=== PATIENT | female | born 1965 | race Asian ===

== ENCOUNTER 2017-10-24 08:51 | Outpatient (CLI) | payer OTHER | END 2017-10-24 08:52 | disposition home or self-care (01) | LOC: BICMAMMO 08:51 | PROVIDERS: ATTEND Family Medicine | DX: Z12.31 Encounter for screening mammogram for malignant neoplasm of breast (principal); R92.1 Mammographic calcification found on diagnostic imaging of breast | CPT/HCPCS: 77063; 77067 ==

== ENCOUNTER 2018-06-06 11:11 | Day surgery (SDC) | payer OTHER ==
[2018-06-01 11:12] VITALS: BMI 20.9
[2018-06-06] MEDS ORDERED: Lidocaine 1% PF 5 ML VIAL ONE (18:40)
[2018-06-06] MEDS ORDERED: PROPOFOL 200 MG/20 ML VIAL ONE (18:40)
--- NOTE | 2018-06-06 21:21 | OP ---
DATE OF PROCEDURE: 06/06/2018 PROCEDURES PERFORMED: 1. Esophagogastroduodenoscopy with biopsy. 2. Esophageal dilation with Werner size 50-[place] dilator. PREOPERATIVE DIAGNOSES: Chronic dyspepsia and dysphagia. POSTOPERATIVE DIAGNOSES: 1. Normal esophagus. No esophagitis or any stricture seen. 2. Mild antral gastritis. DESCRIPTION OF PROCEDURE: The patient was placed in her left lateral position and was given sedation by the Anesthesia Department. A Pentax video gastroscope, under direct vision, was passed down the oropharynx past the GE junction into the stomach, and subsequently into the descending duodenum. The vocal cords appeared healthy. The esophageal lumen is wide open. No esophageal stricture was seen. Also, the mucosa appeared normal. In the GE junction, no lesions seen. Retroflexion failed to show any pathology in the fundus or cardia. At the gastric body, no pathology seen. The gastric antrum showed mild gastritis. Biopsies were obtained from the gastric antrum and the gastric body. At the duodenal bulb and descending duodenum, no pathology seen. The stomach decompressed and the scope was removed. Because of history of dysphagia, a 50-[place] Werner dilator passed down with no resistance. DISCHARGE PLANNING: This is a 52-year-old [place] female referred to me for evaluation of chronic dyspepsia and dysphagia. The EGD was basically negative. She did have a mild gastritis. Biopsy was obtained from gastric antrum. DISCHARGE RECOMMENDATIONS: 1. The patient advised to continue medications as before. 2. Omeprazole 40 once a day. 3. Offered gastric biopsy and decide further course of treatment. Job ID: [id number]
== END 2018-06-06 14:15 | disposition home or self-care (01) ==
LOC: SDC 11:11
PROVIDERS: ATTEND Internal Medicine Gastroenterology
PROC: 0DB68ZZ Excision of Stomach, Via Natural or Artificial Opening Endoscopic (ICD-10-PCS; principal; 2018-06-06)
PROC: 0D757ZZ Dilation of Esophagus, Via Natural or Artificial Opening (ICD-10-PCS; principal; 2018-06-06)
DX: R13.10 Dysphagia, unspecified (principal); K29.70 Gastritis, unspecified, without bleeding
CPT/HCPCS: 88305; 88312; J2001; J2704

== ENCOUNTER 2018-11-29 15:02 | Outpatient (CLI) | payer OTHER ==
--- NOTE | 2018-11-29 15:58 | MMO ---
Bilateral MAMMO Bilat Screen [facility]. CLINICAL HISTORY: Patient is 53 years old and is seen for screening. The patient has no family history of breast cancer. The patient has no personal history of cancer. VIEWS: The views performed were: bilateral craniocaudal with tomosynthesis; bilateral mediolateral oblique with tomosynthesis; and bilateral exaggerated craniocaudal. MAMMOGRAM FINDINGS: The breasts are heterogeneously dense, which could obscure a lesion on mammography. Benign calcifications are noted bilaterally. There are no suspicious masses, suspicious calcifications, or new areas of architectural distortion. IMPRESSION: THERE IS NO MAMMOGRAPHIC EVIDENCE OF MALIGNANCY. A ROUTINE FOLLOW-UP MAMMOGRAM IN 1 YEAR IS RECOMMENDED. THE RESULTS OF THIS EXAM WERE SENT TO THE PATIENT. ACR BI-RADS Category 2 - Benign finding MAMMOGRAPHY NOTE: 1. A negative mammogram report should not delay a biopsy if a dominant of clinically suspicious mass is present. 2. Approximately 10% to 15% of breast cancers are not detected by mammography. 3. Adenosis and dense breasts may obscure an underlying neoplasm.
== END 2018-11-29 15:03 | disposition home or self-care (01) ==
LOC: BICMAMMO 15:02
PROVIDERS: ATTEND Family Medicine
DX: Z12.31 Encounter for screening mammogram for malignant neoplasm of breast (principal)
CPT/HCPCS: 77063; 77067

== ENCOUNTER 2019-12-17 07:58 | Outpatient (CLI) | payer OTHER ==
--- NOTE | 2019-12-17 08:47 | MMO ---
Bilateral MAMMO Bilat Diag [facility]. CLINICAL HISTORY: Patient is 54 years old and is seen for diagnostic exam and bloody discharge in the right breast. The patient has no family history of breast cancer. The patient has no personal history of cancer. VIEWS: The views performed were: bilateral craniocaudal with tomosynthesis; bilateral mediolateral oblique with tomosynthesis; and bilateral mediolateral with tomosynthesis. FILMS COMPARED: The present examination has been compared to prior imaging studies performed at [facility] on 02/04/2015 and 08/12/2016, and at [facility] on 11/29/2018 and 12/17/2019. This study has been interpreted with the assistance of computer-aided detection. MAMMOGRAM FINDINGS: The breasts are heterogeneously dense, which could obscure a lesion on mammography. There are no suspicious masses, suspicious calcifications, or new areas of architectural distortion. There are no mammographic or sonographic abnormalities to explain the patient's reported bloody right nipple discharge. The patient is referred back to her clinician. Negative imaging findings should not preclude further evaluation if clinical findings are suspicious. IMPRESSION: THERE ARE NO MAMMOGRAPHIC ABNORMALITIES TO EXPLAIN THE PATIENT'S REPORTED BLOODY RIGHT NIPPLE DISCHARGE. THE PATIENT IS REFERRED BACK TO HER CLINICIAN. NEGATIVE IMAGING FINDINGS SHOULD NOT PRECLUDE FURTHER EVALUATION IF CLINICAL FINDINGS ARE SUSPICIOUS. THE RESULTS OF THIS EXAM WERE SENT TO THE PATIENT. ACR BI-RADS Category 1 - Negative MAMMOGRAPHY NOTE: 1. A negative mammogram report should not delay a biopsy if a dominant of clinically suspicious mass is present. 2. Approximately 10% to 15% of breast cancers are not detected by mammography. 3. Adenosis and dense breasts may obscure an underlying neoplasm. Reported by: SAMUEL PORRAS MD Electonically Signed: [id number]
--- NOTE | 2019-12-17 08:49 | ULT ---
EXAM: US Breast Limited Rt PROVIDED CLINICAL HISTORY: Right breast pain and bloody nipple discharge COMPARISON: None FINDINGS: Limited sonographic interrogation was performed of the right breast in the retroareolar region. The s onographic appearance of the breast tissue in this region is normal. IMPRESSION: No sonographic abnormality is evident. Negative imaging findings should not preclude further evaluati on of a clinically suspicious finding. Patient is referred back to her clinician.
== END 2019-12-17 07:59 | disposition home or self-care (01) ==
LOC: BICMAMMO 07:58
PROVIDERS: ATTEND Physician Assistant
DX: N64.59 Other signs and symptoms in breast (principal); N64.52 Nipple discharge
CPT/HCPCS: 77066; G0279

== ENCOUNTER 2022-06-21 12:31 | Outpatient (CLI) | payer OTHER | END 2022-06-21 12:32 | disposition home or self-care (01) | LOC: BICCT 12:31 | PROVIDERS: ATTEND Family Medicine | DX: E78.5 Hyperlipidemia, unspecified (principal); I25.10 Atherosclerotic heart disease of native coronary artery without angina pectoris | CPT/HCPCS: 75571 ==

== ENCOUNTER 2022-10-24 08:08 | Outpatient (CLI) | payer OTHER | END 2022-10-24 08:09 | disposition home or self-care (01) | LOC: BICMAMMO 08:08 | PROVIDERS: ATTEND Family Medicine | DX: Z12.31 Encounter for screening mammogram for malignant neoplasm of breast (principal) | CPT/HCPCS: 77063; 77067 ==